=== PATIENT | male | born 1945 | race Caucasian/White ===

== ENCOUNTER 2021-10-23 12:22 | Emergency (ER) | payer MEDICARE ==
[2021-10-24 16:43] LABS: SARS-CoV-2 PCR by NAA DETECTED (NotDetected)
== END 2021-10-23 12:51 | disposition home or self-care (01) ==
LOC: NAV ERS 12:22
DX: U07.1 COVID-19 (principal)
CPT/HCPCS: U0003; U0005; 99283

== ENCOUNTER 2023-08-16 13:30 | Emergency (ER) | payer OTHER, MEDICARE | END 2023-08-16 15:00 | disposition home or self-care (01) | LOC: NAV ERS 13:30 | DX: S09.90XA Unspecified injury of head, initial encounter (principal); R29.700 NIHSS score 0; W01.198A Fall on same level from slipping, tripping and stumbling with subsequent striking against other object, initial encounter; Z79.899 Other long term (current) drug therapy | CPT/HCPCS: 70450 ==

== ENCOUNTER 2023-10-07 09:31 | Emergency (ER) | payer MEDICARE ==
[2023-10-07 10:43] LABS: #Basophils 0.1 thou/uL (0.0-0.2); #Eosinphils 0.3 thou/uL (0.0-0.7); #Monocytes 0.6 thou/uL (0.11-0.59); #Neutrophils 2.9 thou/uL (1.40-6.50); %Basophils 2.3 % (0.0-1.0); %Eosinophils 5.9 % (0.0-10.0); %Lymphocytes 21.1 % (21.0-51.0); %Monocytes 12.7 % (0.0-10.0); %Neutrophils 57.9 % (42.0-75.0); Hematocrit 52.5 % (42.0-52.0); Hemoglobin 16.5 g/dL (14.0-18.0); Mean Corpuscular HGB CONC 31.4 g/dL (32.0-36.0); Platelet Count 173 10x3/uL (130-400); RBC Distribution Width 12.6 % (11.5-14.5); Red Blood Cell (RBC) Count 6.11 mill/uL (4.70-6.10); White Blood Cell (WBC) Count 4.9 10x3/uL (4.8-10.8)
[2023-10-07 10:48] LABS: Prothrombin Time 13.6 sec (12.0-14.7)
[2023-10-07 10:56] LABS: ALT (SGPT) 25 U/L (8-55); AST (SGOT) 36 U/L (5-34); Alkaline Phosphatase 80 U/L (40-110); Anion Gap 10 mmol/L (10-20); BUN (Urea Nitrogen) 33 mg/dL (8.4-25.7); Bilirubin, Total 0.7 mg/dL (0.2-1.2); Calc. Creatinine Clearance 0 mL/min (70-130); Calcium 9.2 mg/dL (7.8-10.44); Carbon Dioxide 26 mmol/L (23-31); Chloride 109 mmol/L (98-107); Estimated GFR 42; Globulin 2.6 g/dL (2.4-3.5); Glucose 108 mg/dL (83-110); Potassium 4.3 mmol/L (3.5-5.1); Protein, Total 6.6 g/dL (5.8-8.1); Sodium 141 mmol/L (136-145)
== END 2023-10-07 12:30 | disposition home or self-care (01) ==
LOC: NAV ERS 09:31
DX: K62.5 Hemorrhage of anus and rectum (principal); N28.9 Disorder of kidney and ureter, unspecified
CPT/HCPCS: 80053; 82274; 85025; 85610; 85730; 99283

== ENCOUNTER 2024-12-27 11:44 | Emergency (ER) | payer MEDICARE, OTHER ==
[2024-12-27 12:12] LABS: #Basophils 0.1 thou/uL (0.0-0.2); #Eosinophils 0.2 thou/uL (0.0-0.7); #Lymphocytes 1.1 thou/uL (1.20-3.40); #Monocytes 0.7 thou/uL (0.11-0.59); #Neutrophils 4.8 thou/uL (1.40-6.50); %Basophils 1.6 % (0.0-1.0); %Lymphocytes 15.5 % (21.0-51.0); %Monocytes 10.2 % (0.0-10.0); %Neutrophils 69.8 % (42.0-75.0); Hematocrit 50.5 % (42.0-52.0); Hemoglobin 16.3 g/dL (14.0-18.0); Mean Corpuscular HGB CONC 32.2 g/dL (32.0-36.0); Mean Corpuscular Hemoglobin 26.6 pg (27.0-31.0); Mean Corpuscular Volume 82.5 fl (78.0-98.0); Mean Platelet Volume 8.8 fL (7.4-10.4); Platelet Count 195 10x3/uL (130-400); RBC Distribution Width 12.2 % (11.5-14.5); Red Blood Cell (RBC) Count 6.12 mill/uL (4.70-6.10); White Blood Cell (WBC) Count 6.9 10x3/uL (4.8-10.8)
[2024-12-27] MEDS ORDERED: Aspirin Chewable 81 MG TAB ONE (12:13)
[2024-12-27 12:28] LABS: ALT (SGPT) 22 U/L (Less than 45); AST (SGOT) 33 U/L (11-34); Alkaline Phosphatase 80 U/L (40-110); Anion Gap 13 mmol/L (10-20); BUN (Urea Nitrogen) 29 mg/dL (8.4-25.7); Bilirubin, Total 0.6 mg/dL (0.3-1.2); Calc. Creatinine Clearance 0 mL/min (70-130); Calcium 9.5 mg/dL (7.8-10.44); Carbon Dioxide 23 mmol/L (23-31); Chloride 109 mmol/L (98-107); Estimated GFR 50; Globulin 2.9 g/dL (2.4-3.5); Glucose 91 mg/dL (83-110); Potassium 4.3 mmol/L (3.5-5.1); Protein, Total 6.9 g/dL (5.8-8.1); Sodium 141 mmol/L (136-145)
[2024-12-27 12:29] LABS: Troponin I Less than 0.010 ng/mL (< 0.028)
[2024-12-27 15:13] LABS: Troponin I Less than 0.010 ng/mL (< 0.028)
== END 2024-12-27 16:09 | disposition short-term general hospital (02) ==
LOC: NAV ERS 11:44
DX: R07.9 Chest pain, unspecified (principal); I12.9 Hypertensive chronic kidney disease with stage 1 through stage 4 chronic kidney disease, or unspecified chronic kidney disease; N18.9 Chronic kidney disease, unspecified; R29.704 NIHSS score 4
CPT/HCPCS: 71045; 80053; 84484; 85025; 93005

== ENCOUNTER 2025-07-21 21:12 | Emergency (ER) | payer MEDICARE, OTHER ==
[2025-07-21 21:42] LABS: Glucose, Urine (Dipstick) Negative (Negative); Leukocyte Negative (Negative); Protein, Urine (Dipstick) > or equal to 300 mg/dL (Neg-Trace); Specific Gravity, Urine 1.025 (1.005-1.030)
[2025-07-21 21:47] LABS: RBC/HPF Greater than 50 HPF (0-3)
[2025-07-21 21:48] LABS: Bacteria/HPF None Seen HPF (None Seen); CAUTI Indications for Culture Dysuria,urgency,freq; WBC/HPF 0-3 HPF (0-3); Yeast-Budding Rare HPF (None Seen)
[2025-07-21 21:49] LABS: Urine Culture Reflex No No
== END 2025-07-21 23:05 | disposition home or self-care (01) ==
LOC: NAV ERS 21:12
DX: R31.0 Gross hematuria (principal)
CPT/HCPCS: 81001